=== PATIENT | male | born 1970 | race African-American/Black ===

== ENCOUNTER 2017-01-02 15:29 | Inpatient (IN) | payer OTHER ==
[2017-01-02] MEDS ORDERED: NACL 0.9% 500 ML 500 ML IV SCH (16:00)
--- NOTE | 2017-01-02 17:02 | Event Note ---
Date: 01/02/17 46 year old male directly admitted from our [place] office for shortness of breath and severe MR. TTE done 12/29 showed moderate to severe MVP and severe MR , EF 65%. Will plan for SUKHI and left heart cath in am. If indicated, patient will be transferred to [place] for surgical repair.
--- NOTE | 2017-01-02 19:53 | History and Physical Report ---
History of Present Illness Date of examination: 01/02/17 Date of admission: 01/02/17 16:56 Chief complaint: Increasing SOB for 1 month. History of present illness: 46 year old male admitted directly from Dr Nhan Wang's [facility] for increasing SOB for last 1 month.Patient has Class 4 NYHA symptoms including orthopnea.No PND attacks.Patient was recently diagnosed with MR sec to severe MVP.EF was 65 percent.Severe MR on ECHO.Being admitted for optimization of medications TEEand cardiac cath.Possible MV replacement down the road at [place]. No fever chills or weight loss. Past History Past Medical History: heart failure, other (Mitral valve regurgitation.) Past Surgical History: No surgical history Social history: no significant social history, lives with family Family history: no significant family history Medications and Allergies Allergies Allergy/AdvReac Type Severity Reaction Status Date / Time No Known Allergies Allergy Unverified 01/02/17 15:57 Home Medications Medication Instructions Recorded Confirmed Last Taken Type ALBUTEROL Inhaler [Proair] 1 puff IH TID PRN 01/02/17 01/02/17 Unknown History Promethazine Dm [Phenergan Dm 5 - 10 ml PO TID PRN 01/02/17 01/02/17 1 Day Ago History 6.25/15 mg 5 ml] guaiFENesin ER [Mucinex ER] 600 mg PO Q12H 01/02/17 01/02/17 1 Day Ago History Active Meds: Active Medications Sodium Chloride (Nacl 0.9% 500 Ml) 500 mls @ 50 mls/hr IV DIRECT MELLISA Stop: 01/03/17 01:59 Review of Systems All systems: negative Cardiovascular: orthopnea, palpitations, shortness of breath, dyspnea on exertion, decreased exercise tolerance Respiratory: shortness of breath, dyspnea on exertion, congestion Exam - Constitutional Vitals: Temp Pulse Resp BP Pulse Ox 95 H 01/02/17 19:38 General appearance: Present: no acute distress, well-nourished - EENT Eyes: Present: PERRL ENT: hearing intact, clear oral mucosa - Neck Neck: Present: supple, normal ROM - Respiratory Respiratory effort: normal Respiratory: bilateral: rales - Cardiovascular Rhythm: regular Heart Sounds: Present: S1 & S2, systolic murmur (Laws systolic murmur in MA). Absent: rub, click - Extremities Extremities: pulses symmetrical, No edema Peripheral Pulses: within normal limits - Abdominal General gastrointestinal: Present: soft, non-tender, non-distended, normal bowel sounds Male genitourinary: Present: normal - Integumentary Integumentary: Present: clear, warm, dry - Musculoskeletal Musculoskeletal: gait normal, strength equal bilaterally - Psychiatric Psychiatric: appropriate mood/affect, intact judgment & insight - Neurologic Neurologic: CNII-XII intact, moves all extremities - Allied Health Allied health notes reviewed: nursing Assessment and Plan - Patient Problems (1) Acute exacerbation of CHF (congestive heart failure) Current Visit: Yes Status: Acute Qualifiers: Congestive heart failure type: systolic Qualified Code(s): I50.23 - Acute on chronic systolic (congestive) heart failure Plan to address problem: Sec To MV regurgitation.Echodone on 12/27/16 at [facility] showed EF of 65 percent and Severe Mitral valve prolapse with MVR.Lasix 40 mg IV q24 for now. SUKHI and cath in next one to two days. (2) Mitral valvular regurgitation Current Visit: Yes Status: Acute Qualifiers: Cardiac valve disease etiology: nonrheumatic Qualified Code(s): I34.0 - Nonrheumatic mitral (valve) insufficiency Plan to address problem: Sec to severe Mitral valve prolapse.Needs SUKHI and cath.Possible MV replacement at [facility]. (3) DVT prophylaxis Current Visit: Yes Status: Acute Plan to address problem: On Lovenox
[2017-01-03 06:11] LABS: Anion Gap 20 mmol/L; BUN/Creatinine Ratio 27.14; Basophils % (Auto) 0.9 % (0.0-1.8); Blood Urea Nitrogen 19 mg/dL (9-20); Calcium 8.9 mg/dL (8.4-10.2); Carbon Dioxide 21 mmol/L (22-30); Chloride 103.2 mmol/L (98-107); Eosinophils % (Auto) 3.2 % (0.0-4.3); Glucose 101 mg/dL (75-100); Hematocrit 40.9 % (35.5-45.6); Hemoglobin 13.7 gm/dl (11.8-15.2); INR 1.04 (0.87-1.13); Mean Corpuscular HGB Conc 33 % (32-34); Mean Corpuscular Hemoglobin 28 pg (28-32); Mean Corpuscular Volume 84 fl (84-94); Partial Thromboplastin Time 30.9 Sec. (24.2-36.6); Platelet Count 322 K/mm3 (140-440); Red Blood Count 4.86 M/mm3 (3.65-5.03); Red Cell Distribution Width 13.3 % (13.2-15.2); Sodium 140 mmol/L (137-145); White Blood Count 9.3 K/mm3 (4.5-11.0)
--- NOTE | 2017-01-03 08:06 | Anesthesia Consultation ---
Anesthesia Consult and Med Hx Date of service: 01/03/17 - Airway Anesthetic Teeth Evaluation: Good ROM Head & Neck: Adequate Mental/Hyoid Distance: Adequate Mallampati Class: Class II Intubation Access Assessment: Probably Good - Pulmonary Exam CTA: Yes - Cardiac Exam Cardiac Exam: RRR - Pre-Operative Health Status ASA Pre-Surgery Classification: ASA3 Proposed Anesthetic Plan: MAC - Pre-Anesthesia Comment Pre-Anesthesia Comments: CHF - Pulmonary Hx Smoking: Yes (Former) Hx Asthma: No SOB: Yes COPD: No Hx Pneumonia: No - Cardiovascular System Hx Hypertension: No Hx Valvular Heart Disease: Yes (MVP, severe MR) Hx Heart Murmur: Yes - Endocrine Hx End Stage Renal Disease: No
--- NOTE | 2017-01-03 08:07 | Anesthesia Day of Surgery ---
Anesthesia Day of Surgery - Day of Surgery Patient Examined: Yes Patient H&P Reviewed: Yes Patient is NPO: Yes
[2017-01-03] MEDS ORDERED: HEPARIN/NS 5000 UNIT/500ML(CATH LAB) 1,000 ML IR ONE (08:28)
[2017-01-03] MEDS ORDERED: CALAN ONE (08:28)
[2017-01-03] MEDS ORDERED: HEPARIN 10,000 UNITS/10 ML ONE (08:28)
[2017-01-03] MEDS ORDERED: NITROGLYCERIN SYRINGE 3 ML ONE (08:29)
[2017-01-03] MEDS ORDERED: XYLOCAINE 2% INFILTRATI ONE (08:29)
[2017-01-03] MEDS ORDERED: SUBLIMAZE ONE (08:35)
[2017-01-03] MEDS ORDERED: VERSED ONE (08:35)
[2017-01-03] MEDS ORDERED: HEPARIN 10,000 UNITS/10 ML 2,000 UNIT in NACL 0.9% 500 ML 500 ML IR ONE (08:45)
[2017-01-03] MEDS ORDERED: VERSED IV ONE (08:48)
[2017-01-03] MEDS ORDERED: SUBLIMAZE IV ONE (08:48)
[2017-01-03] MEDS ORDERED: NACL 0.9% 1000 ML 1,000 ML IV SCH (09:00)
[2017-01-03] MEDS ORDERED: DIPRIVAN 10 MG/ML IV ONE ×2 (09:15)
[2017-01-03] MEDS ORDERED: HURRICAINE ONE 20% TOPICAL SPRAY MM (09:22)
--- NOTE | 2017-01-03 09:26 | Progress Note ---
Assessment and Plan Severe mitral regurgitation await cath and SUKHI findings Await SUKHI and left heart cath findings. Further recommendations to follow. The patient has been seen in conjunction with Dr. Gamez who agrees with the assessment and plan of care. Subjective Date of service: 01/03/17 Principal diagnosis: severe MR Interval history: The patient is resting in bed. No new complaints. Awaiting left heart cath and SUKHI this morning. Objective Last Vital Signs Temp 98.2 F 01/03/17 04:00 Pulse 102 H 01/03/17 07:32 Resp 18 01/03/17 04:00 BP 98/58 01/03/17 04:00 Pulse Ox 97 01/03/17 04:00 - Physical Examination General: No Apparent Distress HEENT: Positive: PERRL, Normocephaly, Mucus Membranes Moist Neck: Positive: neck supple, trachea midline Cardiac: Positive: Reg Rate and Rhythm, S1/S2, Systolic Murmur Lungs: Positive: clear to auscultation Neuro: Positive: Grossly Intact Abdomen: Positive: Soft, Active Bowel Sounds. Negative: Tender Skin: Positive: Clear. Negative: Rash Extremities: Present: normal. Absent: edema - Labs and Meds Coagulation 01/03/17 Range/Units 04:00 PT 13.5 (12.2-14.9) Sec. INR 1.04 (0.87-1.13) APTT 30.9 (24.2-36.6) Sec. CBC 01/03/17 Range/Units 04:00 WBC 9.3 (4.5-11.0) K/mm3 RBC 4.86 (3.65-5.03) M/mm3 Hgb 13.7 (11.8-15.2) gm/dl Hct 40.9 (35.5-45.6) % Plt Count 322 (140-440) K/mm3 Lymph # 3.1 (1.2-5.4) K/mm3 [place] # 1.0 H (0.0-0.8) K/mm3 Eos # 0.3 (0.0-0.4) K/mm3 Baso # 0.1 (0.0-0.1) K/mm3 Comprehensive Metabolic Panel 01/03/17 Range/Units 04:00 Sodium 140 (137-145) mmol/L Potassium 4.0 (3.6-5.0) mmol/L Chloride 103.2 (98-107) mmol/L Carbon Dioxide 21 L (22-30) mmol/L BUN 19 (9-20) mg/dL Creatinine 0.7 L (0.8-1.5) mg/dL Glucose 101 H (75-100) mg/dL Calcium 8.9 (8.4-10.2) mg/dL - Imaging and Cardiology Echo: report reviewed (12/2016: EF 65%, moderate-severe MVP, severe MR) - Telemetry EKG Rhythm: Sinus Rhythm
[2017-01-03] MEDS ORDERED: XYLOCAINE MPF 2% ONE (09:42)
--- NOTE | 2017-01-03 09:52 | Admit Criteria Form ---
Admission Criteria Documentation: HEART FAILURE: COMMON COMPLICATIONS Clinical Indications for Inpatient Care (Place 'X' for any and all applicable criteria): Ongoing inpatient care may be indicated for heart failure with ANY ONE of the following (1)(2)(3)(4)(5): [ ]I. Ongoing need for care for primary condition requiring frequent therapy adjustments because of changes in cardiac function (eg, drug dosage changes for drugs that are renally metabolized) [ ]II. New-onset heart failure [ ]III. Heart failure with decreased urine output not responsive to attempts to optimize volume status [ ]IV. Acute cardiac ischemia causing or associated with failure [X]V. Complications of heart failure, including ANY ONE of the following: [ ]a) Pericardial effusion [ ]b) Symptomatic pleural effusion [ ]c) O2 saturation <90% or PO2 < 60 mm Hg (8.0 kPa) on room air or require baseline supplemental O2 [ ]d) Tachypnea [X]e) Dyspnea [ ]f) Syncope [ ]g) Change in mental status [ ]h) Acute renal insufficiency that is severe (reduction of more than 50% in estimated glomerular filtration rate from baseline) or progressive reduction of more than 25% in estimated glomerular filtration rate from baseline, with creatinine continuing to rise) [ ]i) Hemodynamic instability [ ]j) Anasarca [ ]k) Clinically significant metabolic abnormalities due to heart failure (eg, new-onset metabolic acidosis) Extended stay beyond goal length of stay for primary condition may be needed until ALL of the following are present(1)(3): [ ]a) Stable and effective diuretic regimen established (or patient on stable dialysis regimen if in chronic renal failure) [ ]b) Breathing comfortably at rest [ ]c) Saturation of arterial oxygen greater than 90% or at acceptable baseline [ ]d) Pulmonary edema absent or improved [ ]e) Hemodynamic stability [ ]f) Volume status acceptable on oral medication [ ]g) Peripheral or sacral edema absent or improved [ ]h) Renal function stable and manageable at a lower level of care [ ]i) Complications (eg, pleural effusion) resolved or manageable at a lower level of care [ ]j) Patient or caregiver has received written discharge instructions or educational material addressing activity level, diet, discharge medications, follow-up appointment, weight monitoring, and what to do if symptoms worsen The original [facility] content created by [employer] has been revised. The portions of the content which have been revised are identified through the use of italic text or in bold, and [facility] has neither reviewed nor approved the modified material.All other unmodified content is copyright [facility]. Please see references footnoted in the original [facility] edition 2016 Admission Criteria Met: Yes
[2017-01-03] MEDS ORDERED: LASIX IV SCH (10:00)
[2017-01-03] MEDS ORDERED: LOVENOX SUB-Q SCH (10:00)
[2017-01-03] MEDS ORDERED: K-DUR PO SCH (10:00)
--- NOTE | 2017-01-03 10:51 | Cardiac Catherization Report ---
CARDIAC CATHETERIZATION REFERRING PHYSICIAN: Radha Wang MD INDICATION FOR PROCEDURE: The patient is a pleasant 46-year-old [place] gentleman who presents with acute shortness of breath, found to have severe mitral regurgitation, he appears to have mitral valve prolapse. There is some question of acute MR. The patient was tachycardic and short of breath, referred for left heart catheterization. Risks, benefits, and potential alternatives explained at length prior to obtaining informed consent. PROCEDURE IN DETAIL: The patient was brought to the cathead operator in a postabsorptive state, prepped and draped in sterile fashion. Augustine's test in right hand was normal. A 2 mL of 2% lidocaine used to anesthetize the right wrist. A standard 6-Slovenian hydrophilic sheath used to cannulate the right radial artery via modified Seldinger technique. All exchanges performed to exchange a J-tip guidewire. JL3.5 catheter used to engage the left main. No dampening or ventricularization. Cineangiography performed in all projections. JR4 catheter used to cross the aortic valve under fluoroscopic guidance. Left ventriculography performed in 30 GROSSMAN and 30 MARCO projections via hand injections, catheter flushed. Manual pullback performed with continuous pressure monitoring. Catheter used to engage the right coronary. No dampening or ventricularization. Cineangiography performed in multiple projections. DATA: The patient remained in sinus rhythm throughout the procedure. Heart rate of 95-105. Total of 50 mL of Isovue was used. CORONARY ANATOMY: This is a left dominant system. Right coronary is small, nondominant. Left main without significant disease. LAD is a large vessel, courses anterior intergroove, wraps around the apex, no significant disease. There is a small first or second diagonal with a 99% stenosis proximally with JOHN 2 flow. This is a 1.5 diameter vessel. Left circumflex is a large vessel, left present, no significant disease there. Left ventriculography reveals normal systolic performance with estimated ejection fraction of 55-60%. A 3+ to 4+ mitral regurgitation is identified. CONCLUSIONS: 1. Mild small vessel coronary artery disease with a 99%, small first diagonal, 1.5 diameter of vessel, otherwise no significant disease in major epicardial vessels, right dominant system. 2. Normal left ventricular systolic performance, estimated ejection fraction of 55-60%. 3. A 3-4+ mitral regurgitation. 4. No evidence of aortic stenosis. Given his baseline sinus tachycardia, acute shortness of breath, 3-4+ MR, this may in fact be consistent with acute MR. The patient is set up for SUKHI later this morning. Results of procedure have been discussed with the patient and family. All questions and concerns were addressed. Further plans contingent on SUKHI results. [facility]# [id number] SBAnatoliy/NTS
[2017-01-03] MEDS ORDERED: HURRICAINE ONE 20% TOPICAL SPRAY MM NR (11:00)
--- NOTE | 2017-01-03 12:34 | Event Note ---
Date: 01/03/17 Cardiac cath this morning revealed 99% small 1st diagonal (1.5mm vessel), otherwise no significant disease but 3-4+ MR. SUKHI revealed severe MR with likely posterior chordal rupture. Given these findings, pt. will be transferred to [facility] under the care of Dr. Garza for presumptive mitral valve replacement.
--- NOTE | 2017-01-03 14:08 | Discharge Summary ---
Providers - Providers Date of Admission: 01/02/17 16:56 Date of discharge: 01/03/17 Attending physician: AARON GARCIA 01/03/17 02:57 Consult to Physician [CONS] Routine Consulting Provider: SULEIMAN DONG Reason For Exam: chf/MVR Place consult to:: [facility] Notified:: yes Primary care physician: STEPHY HERNANDEZ Hospitalization Condition: Stable Hospital course: Cardiac cath this morning revealed 99% small 1st diagonal (1.5mm vessel), otherwise no significant disease but 3-4+ MR. SUKHI revealed severe MR with likely posterior chordal rupture. Given these findings, pt. will be transferred to [facility] under the care of Dr. Garza for presumptive mitral valve replacement. a/c systolic heart failure severe MR htn Disposition: DC/TX ANOTHER TYPE HEALTHCARE Time spent for discharge: 34 minutes Core Measure Documentation - Palliative Care Palliative Care/ Comfort Measures: Not Applicable - Core Measures Any of the following diagnoses?: heart failure - VTE Discharge Requirements Deep Vein Thrombosis/Pulmonary Embolism Present on Admission: No Has pt received <5 days of overlap therapy or INR<2.0: No Anticoagulant overlap therapy prescribed at discharge: No Contraindication No Overlap Therapy order at DC: Not Indicated - Heart Failure Discharge Requirements LIAM/ARB for LVSD if EF <40%: Yes Beta hong at discharge: Yes Exam - Physical Exam Narrative exam: GEN: ill appearing on nasal canula NAD, AWAKE, ALERT, ORIENTATED x 2 HEENT: NCAT, PERRL, EOMI, OP CLEAR NECK: SUPPLE, NO THYROMEGALY, NO JVD, NO LAD CVS: RRR, NORMAL S1S2, +III/ systolic murmur at apex radiating to axilla LUNGS/CHEST: NORMAL CHEST EXPANSION B, GOOD AIR ENTRY B ABD: SOFT NTND, GBS, NO REBOUND OR GUARDING Scrips assigned there is nothing to NEURO: CN 2-12 GROSSLY INTACT, NO new FOCAL DEFICITS PSY: CALM - Constitutional Vitals: Temp Pulse Resp BP Pulse Ox 98.2 F 99 H 26 H 98/72 95 01/03/17 04:00 01/03/17 13:00 01/03/17 13:00 01/03/17 13:00 01/03/17 13:00 Plan Activity: other (no strenous activites until cleared by cardiology) Diet: low salt Follow up with: STEPHY HERNANDEZ MD [Primary Care Provider] - 7 Days Prescriptions: Aspirin [Aspirin TAB] 325 mg PO QDAY #30 tablet Losartan [Cozaar] 12.5 mg PO QDAY #30 tablet Metoprolol [Lopressor TAB] 12.5 mg PO BID #60 tablet
--- NOTE | 2017-01-03 14:12 | Progress Note ---
Assessment and Plan Assessment and plan: severe mr going to [place] [facility], a/c HFrEF add losartan and bb with asa to discharge meds htn History Interval history: Patient seen and examined. Follow up on sob. Overnight uneventful. No cp, n/v or severe headaches. Imaging, old records, testing, labs, nursing notes reviewed. Hospitalist Physical - Physical exam Narrative exam: GEN: ill appearing on nasal canula NAD, AWAKE, ALERT, ORIENTATED x 2 HEENT: NCAT, PERRL, EOMI, OP CLEAR NECK: SUPPLE, NO THYROMEGALY, NO JVD, NO LAD CVS: RRR, NORMAL S1S2, +III/ systolic murmur at apex radiating to axilla LUNGS/CHEST: NORMAL CHEST EXPANSION B, GOOD AIR ENTRY B ABD: SOFT NTND, GBS, NO REBOUND OR GUARDING Scrips assigned there is nothing to NEURO: CN 2-12 GROSSLY INTACT, NO new FOCAL DEFICITS PSY: CALM - Constitutional Vitals: Temp Pulse Resp BP Pulse Ox 98.2 F 99 H 26 H 98/72 95 01/03/17 04:00 01/03/17 13:00 01/03/17 13:00 01/03/17 13:00 01/03/17 13:00 General appearance: Present: no acute distress, well-nourished Results - Labs CBC & Chem 7: 01/03/17 04:00 01/03/17 04:00 Labs: Laboratory Last Values WBC 9.3 K/mm3 (4.5-11.0) 01/03/17 04:00 RBC 4.86 M/mm3 (3.65-5.03) 01/03/17 04:00 Hgb 13.7 gm/dl (11.8-15.2) 01/03/17 04:00 Hct 40.9 % (35.5-45.6) 01/03/17 04:00 MCV 84 fl (84-94) 01/03/17 04:00 MCH 28 pg (28-32) 01/03/17 04:00 MCHC 33 % (32-34) 01/03/17 04:00 RDW 13.3 % (13.2-15.2) 01/03/17 04:00 Plt Count 322 K/mm3 (140-440) 01/03/17 04:00 Lymph % (Auto) 33.8 % (13.4-35.0) 01/03/17 04:00 [place] % (Auto) 11.2 % (0.0-7.3) H 01/03/17 04:00 Eos % (Auto) 3.2 % (0.0-4.3) 01/03/17 04:00 Baso % (Auto) 0.9 % (0.0-1.8) 01/03/17 04:00 Lymph # 3.1 K/mm3 (1.2-5.4) 01/03/17 04:00 [place] # 1.0 K/mm3 (0.0-0.8) H 01/03/17 04:00 Eos # 0.3 K/mm3 (0.0-0.4) 01/03/17 04:00 Baso # 0.1 K/mm3 (0.0-0.1) 01/03/17 04:00 Seg Neutrophils % 50.9 % (40.0-70.0) 01/03/17 04:00 Seg Neutrophils # 4.7 K/mm3 (1.8-7.7) 01/03/17 04:00 PT 13.5 Sec. (12.2-14.9) 01/03/17 04:00 INR 1.04 (0.87-1.13) 01/03/17 04:00 APTT 30.9 Sec. (24.2-36.6) 01/03/17 04:00 Sodium 140 mmol/L (137-145) 01/03/17 04:00 Potassium 4.0 mmol/L (3.6-5.0) 01/03/17 04:00 Chloride 103.2 mmol/L (98-107) 01/03/17 04:00 Carbon Dioxide 21 mmol/L (22-30) L 01/03/17 04:00 Anion Gap 20 mmol/L 01/03/17 04:00 BUN 19 mg/dL (9-20) 01/03/17 04:00 Creatinine 0.7 mg/dL (0.8-1.5) L 01/03/17 04:00 Estimated GFR > 60 ml/min 01/03/17 04:00 BUN/Creatinine Ratio 27.14 % 01/03/17 04:00 Glucose 101 mg/dL (75-100) H 01/03/17 04:00 Calcium 8.9 mg/dL (8.4-10.2) 01/03/17 04:00
--- NOTE | 2017-01-03 14:14 | Post Anesthesia Evaluation ---
- Post Anesthesia Evaluation Patient Participated: Yes Airway Patent: Yes Stable Respiratory Function: Yes Nausea/Vomiting: No Temp > 96.8F: Yes Pain Manageable: Yes Adequeate Hydration: Yes Anesthesia Complications: No Block Receding Appropriately: Not Applicable Patient on Ventilator: No
[2017-01-03 14:56] VITALS: BP 104/70
== END 2017-01-03 15:00 | disposition other institution (70) | DRG 286 ==
LOC: 4A 15:29 → UNDOADMIN 15:29 → 4A 16:56
PROVIDERS: ADMIT Internal Medicine; ATTEND Internal Medicine
PROC: 4A023N7 Measurement of Cardiac Sampling and Pressure, Left Heart, Percutaneous Approach (ICD-10-PCS; principal; 2017-01-03)
PROC: B2111ZZ Fluoroscopy of Multiple Coronary Arteries using Low Osmolar Contrast (ICD-10-PCS; 2017-01-03)
DX: I34.0 Nonrheumatic mitral (valve) insufficiency (principal); I50.23 Acute on chronic systolic (congestive) heart failure; I11.0 Hypertensive heart disease with heart failure; I34.1 Nonrheumatic mitral (valve) prolapse; Z87.891 Personal history of nicotine dependence
CPT/HCPCS: 36415; 80048; 85025; 85610; 85730; 93005; 93010; 93312; 93320; 93325; 93458; C1894; J1644; J2250; J2704; J3010; J7030; J7040; Q9967